=== PATIENT | male | born 1930 | race Caucasian/White ===

== ENCOUNTER 2016-03-16 13:19 | Emergency (ER) | payer OTHER ==
[2016-03-16 13:24] VITALS: BP 154/58; PULSE 69; TEMP 98.3; BMI 24.0
--- NOTE | 2016-03-16 13:28 | PDOC ---
History of Present Illness <DailyDelta - Last Filed: 03/16/16 15:27> - General History Source: Patient, Old Records Exam Limitations: No Limitations - History of Present Illness Initial Comments: 03/16/16 13:46 85-year-old male with history of hypertension, myasthenia gravis, CVA, diabetes and chronic renal insufficiency who presents to the emergency department stating that he was instructed to come to the emergency department for an elevated potassium that was drawn as an outpatient. He self reports the potassium is being 6.1. The patient is without complaints and feels quite well. All review of systems are negative. <Isela Govea - Last Filed: 03/16/16 15:39> - General Chief Complaint: Revisit, Lab Variance Stated Complaint: ELEVATED POTASSIUM FROM BLOOD WORK OUT PT. Time Seen by Provider: 03/16/16 13:28 Past History <MacarenaSiminDelta Quintero - Last Filed: 03/16/16 15:27> - Past Medical History Anemia: No Asthma: No Cancer: No Cardiac Disorders: No CVA: Yes ([id number]) COPD: No CHF: No Dementia: No Diabetes: Yes (5 YEARS) GI Disorders: No Disorders: No (FREQUENT URINATION) HTN: Yes Hypercholesterolemia: Yes Liver Disease: No Seizures: No Thyroid Disease: No - Surgical History Abdominal Surgery: No Appendectomy: No Cardiac Surgery: No Cholecystectomy: No Lung Surgery: No Neurologic Surgery: No Orthopedic Surgery: No - Psycho/Social/Smoking Cessation Hx Anxiety: No Suicidal Ideation: No Smoking History: Never smoked Have you smoked in the past 12 months: No Number of Cigarettes Smoked Daily: 0 If you are a former smoker, when did you quit?: 30 YRS AGO Information on smoking cessation initiated: No Hx Alcohol Use: No Drug/Substance Use Hx: No Substance Use Type: None Hx Substance Use Treatment: No <Isela Govea - Last Filed: 03/16/16 15:39> - Past Medical History Allergies/Adverse Reactions: Allergies Allergy/AdvReac Type Severity Reaction Status Date / Time atorvastatin calcium Allergy Verified 03/16/16 13:21 [From Lipitor] aspirin [From Aggrenox] AdvReac Verified 03/16/16 13:21 dipyridamole [From Aggrenox] AdvReac Verified 03/16/16 13:21 lisinopril AdvReac Verified 03/16/16 13:21 Home Medications: Ambulatory Orders Simvastatin [Zocor -] 40 mg PO HS 05/21/12 Glimepiride 2 mg PO DAILY 04/19/15 Aspirin [ASA -] 81 mg PO DAILY 03/16/16 Review of Systems - Review of Systems Constitutional: No: Symptoms Reported HEENTM: No: Symptoms Reported Respiratory: No: Symptoms reported Cardiac (ROS): No: Symptoms Reported ABD/GI: No: Symptoms Reported : No: Symptoms Reported Musculoskeletal: No: Symptoms Reported Neurological: No: Symptoms reported <Isela Govea - Last Filed: 03/16/16 15:39> *Physical Exam - Vital Signs Last Vital Signs Temp Pulse Resp BP Pulse Ox 98.3 F 69 18 154/58 100 03/16/16 13:21 03/16/16 13:21 03/16/16 13:21 03/16/16 13:21 03/16/16 13:21 <Delta Ambrosio - Last Filed: 03/16/16 15:27> - Vital Signs Last Vital Signs Temp Pulse Resp BP Pulse Ox 98.3 F 69 18 154/58 100 03/16/16 13:21 03/16/16 13:21 03/16/16 13:21 03/16/16 13:21 03/16/16 13:21 - Physical Exam Comments: 03/16/16 13:47 GENERAL: Well developed, well nourished. Awake and alert. No acute distress. HEENT: Normocephalic, atraumatic. PERRLA, EOMI. No conjunctival pallor. Sclera are non- icteric. Moist mucous membranes. Oropharynx is clear. NECK: Supple. Full ROM. No JVD. No lymphadenopathy. CARDIOVASCULAR: Regular rate and rhythm. No murmurs, rubs, or gallops. Distal pulses are 2+ and symmetric. PULMONARY: No evidence of respiratory distress. Lungs clear to auscultation bilaterally. No wheezing, rales or rhonchi. ABDOMINAL: Soft. Non-tender. Non-distended. No rebound or guarding. No organomegaly. Normoactive bowel sounds. MUSCULOSKELETAL Normal range of motion at all joints. No bony deformities or tenderness. No CVA tenderness. EXTREMITIES: No cyanosis. No clubbing. No edema. No calf tenderness. SKIN: Warm and dry. Normal capillary refill. No rashes. No jaundice. NEUROLOGICAL: Alert, awake, appropriate. Cranial nerves 2-12 intact. Grossly non-focal exam. PSYCHIATRIC: Cooperative. Good eye contact. Appropriate mood and affect. <Isela Govea - Last Filed: 03/16/16 15:39> ED Treatment Course - LABORATORY CBC & Chemistry Diagram: 03/16/16 13:35 03/16/16 13:35 - ADDITIONAL ORDERS Additional order review: Laboratory Results 03/16/16 13:35 Sodium 132 L Potassium 5.6 H D Chloride 102 Carbon Dioxide 24 Anion Gap 6 L BUN 51 H D Creatinine 1.9 H D Random Glucose 163 H Calcium 8.4 Phosphorus 4.1 Magnesium 2.1 D 03/16/16 13:35 RBC 4.02 MCV 89.6 MCHC 33.2 RDW 13.2 MPV 8.8 Neutrophils % 73.9 Lymphocytes % 15.6 D Monocytes % 9.2 Eosinophils % 1.1 D Basophils % 0.2 <Delta Ambrosio - Last Filed: 03/16/16 15:27> - LABORATORY CBC & Chemistry Diagram: 03/16/16 13:35 03/16/16 13:35 <Isela Govea - Last Filed: 03/16/16 15:39> Medical Decision Making - Medical Decision Making 03/16/16 14:[address]Fred Clay, PCP, , will call back. 03/16/16 15:02 Call made again to Dr.Fred Clay, will call back. 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 <Delta Ambrosio - Last Filed: 03/16/16 15:27> - Medical Decision Making 03/16/16 13:47 85-year-old male with history of diabetes, myasthenia gravis, hypertension, CVA , chronic renal insufficiency who presents the emergency department for evaluation following reported outpatient potassium of 6.1. Plan: 1. Repeat labs to confirm this value as well as evaluate his renal function 2. EKG 3. Observe and reevaluate 03/16/16 15:34 Addendum: The labs were reviewed and are noted in the EMR the potassium was 5.6 and the creatinine is 1.9. The patient was given Kayexalate 30 g by mouth and one albuterol nebulizer treatment for the hyperkalemia. I have discussed the case with Dr. Macias who is the primary care physician who is covering for Dr. Clay. Apparently the patient's baseline creatinine ranges between 1.8 and 2.0. The patient's last potassium in the primary care physician's office was 5.8. I' ve discussed the case with Dr. Macias and the plan is to discharge the patient home with follow-up with Dr. Clay in one week. The patient is to call for a follow-up appointment. I've discussed all of the lab findings with the patient as well as the follow-up plan. I've advised the patient to return to the emergency department if he has any symptoms or any concerns. <Isela Govea - Last Filed: 03/16/16 15:39> *DC/Admit/Observation/Transfer <Delta Ambrosio - Last Filed: 03/16/16 15:27> - Discharge Dispostion Admit: No <Isela Govea - Last Filed: 03/16/16 15:39> Diagnosis at time of Disposition: Hyperkalemia, Chronic kidney disease - Discharge Dispostion Disposition: HOME Condition at time of disposition: Stable - Patient Instructions Printed Discharge Instructions: DI for Hyperkalemia, Chronic Renal Failure Additional Instructions: Your potassium is elevated. You received Kayexalate and albuterol in the emergency department. These medications were to lower your potassium. You are to follow-up with Dr. Clay in one week-please call the office to make an appointment. Please watch the amount of potassium that you can see him in your diet and cut down on are and juice, bananas and other foods that are rich in potassium. You may return to the emergency department if you have any symptoms, questions or concerns.
[2016-03-16 14:04] LABS: CALCIUM 8.4 mg/dl (8.4-10.2); CREATININE 1.9 mg/dl (0.6-1.3); MAGNESIUM 2.1 mg/dL (1.8-2.4); PHOSPHOROUS 4.1 mg/dl (2.5-4.6)
[2016-03-16 14:30] LABS: BASOPHIL 0.2 % (0-2.0); EOSINOPHIL 1.1 % (0-4.5); MCH 29.7 pg (25.7-33.7); MCHC 33.2 g/dl (32.0-35.9); MEAN CELL VOLUME 89.6 fl (80-96); MEAN PLT VOLUME 8.8 fl (7.5-11.1); NEUTROPHILS 73.9 % (42.8-82.8); PLATELET COUNT 229 K/MM3 (134-434); RDW 13.2 % (11.9-15.9); WHITE BLOOD COUNT 7.1 K/mm3 (4.0-10.0)
[2016-03-16] MEDS ORDERED: SODIUM POLYSTYRENE SULFONATE 15 GM/60 ML BOTTLE PO ONE (14:33)
[2016-03-16] MEDS ORDERED: ALBUTEROL SO4 0.083% IH SOL 2.5 MG/3 ML VIAL.NEB. NEB ONE ×2 (14:35→14:40)
[2016-03-16] MEDS ORDERED: SODIUM POLYSTYRENE SULFONATE 15 GM/60 ML BOTTLE ONE (14:40)
--- NOTE | 2016-03-17 13:30 | EKG ---
Test Reason : Blood Pressure : / mmHG Vent. Rate : 063 BPM Atrial Rate : 063 BPM P-R Int : 148 ms QRS Dur : 070 ms QT Int : 378 ms P-R-T Axes : 042 -15 065 degrees QTc Int : 386 ms NORMAL SINUS RHYTHM NONSPECIFIC T WAVE ABNORMALITY ABNORMAL ECG WHEN COMPARED WITH ECG OF 11-MAY-2015 21:29, PREMATURE VENTRICULAR COMPLEXES ARE NO LONGER PRESENT CRITERIA FOR INFERIOR INFARCT ARE NO LONGER PRESENT QT HAS SHORTENED Confirmed by OLIVER WITT MD ([id number]) on 03/17/2016 1:30:02 PM Referred By: ANTONETTE Confirmed By:OLIVER WITT MD
== END 2016-03-16 16:27 | disposition home or self-care (01) ==
LOC: FER 13:19
DX: E87.5 Hyperkalemia (principal); N18.9 Chronic kidney disease, unspecified; Z86.73 Personal history of transient ischemic attack (TIA), and cerebral infarction without residual deficits; E11.9 Type 2 diabetes mellitus without complications; E78.00 Pure hypercholesterolemia, unspecified; Z79.82 Long term (current) use of aspirin; G70.00 Myasthenia gravis without (acute) exacerbation; Z87.891 Personal history of nicotine dependence
CPT/HCPCS: 36415; 80048; 83735; 84100; 85025; 93005; 99282-25

== ENCOUNTER 2016-11-30 01:47 | Emergency (ER) | payer OTHER ==
--- NOTE | 2016-11-30 01:52 | PDOC ---
History of Present Illness - General Chief Complaint: Respiratory Stated Complaint: COUGH Time Seen by Provider: 11/30/16 01:52 - History of Present Illness Initial Comments: 11/30/16 01:58 86yo male presents with acute sob and resp distress. Pt states he had the flu shot on monday. Went back to his primary care physician today because of congestion in the chest and cough - nonproductive. States cough started on monday after seeing his PMD. States he has post-tussive emesis. No cp. No leg edema. States he feels congested but cannot cough up any phlegm. No abd pain. No n/d. No emesis except after coughing. Pt states he feels sob and can't breath. States he wants to cough up the phlegm, but can't. Pt went back to PMD on monday, saw Dr. Clay, underwent an xray that did not show any acute findings per the daughter and and was started on levaquin. 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 Pt states increasing sob. Past History - Past Medical History Allergies/Adverse Reactions: Allergies Allergy/AdvReac Type Severity Reaction Status Date / Time No Known Allergies Allergy Verified 11/30/16 02:09 Home Medications: Ambulatory Orders Simvastatin [Zocor -] 40 mg PO HS 05/21/12 Glimepiride 2 mg PO DAILY 04/19/15 Aspirin [ASA -] 81 mg PO DAILY 03/16/16 Pyridostigmine [Mestinon] 60 mg PO DAILY 11/30/16 Anemia: No Asthma: No Cancer: No Cardiac Disorders: No CVA: Yes ([id number]) COPD: No CHF: No Dementia: No Diabetes: Yes (5 YEARS) GI Disorders: No Disorders: No (FREQUENT URINATION) HTN: Yes Hypercholesterolemia: Yes Liver Disease: No Seizures: No Thyroid Disease: No Other medical history: myasthenia gravis - Surgical History Abdominal Surgery: No Appendectomy: No Cardiac Surgery: No Cholecystectomy: No Lung Surgery: No Neurologic Surgery: No Orthopedic Surgery: No - Suicide/Smoking/Psychosocial Hx Smoking History: Never smoked Have you smoked in the past 12 months: No Number of Cigarettes Smoked Daily: 0 If you are a former smoker, when did you quit?: 30 YRS AGO Hx Alcohol Use: No Drug/Substance Use Hx: No Substance Use Type: None Hx Substance Use Treatment: No Review of Systems - Review of Systems Able to Perform ROS?: Yes Is the patient limited Upper Sorbian proficient: Yes Constitutional: Yes: Weakness. No: Chills, Fever HEENTM: No: Symptoms Reported Respiratory: Yes: Cough, Orthopnea, Shortness of Breath, SOB with Exertion, SOB at Rest. No: Productive cough Cardiac (ROS): No: Chest Pain, Edema, Irregular Heart Rate ABD/GI: No: Diarrhea, Nausea, Vomiting : No: Symptoms Reported Musculoskeletal: No: Symptoms Reported Integumentary: No: Rash Neurological: No: Headache, Numbness, Paresthesia, Ataxia All Other Systems: Reviewed and Negative *Physical Exam - Vital Signs 11/30/16 02:35 Selected Entries 11/30/16 02:13 Temperature 97.9 F Pulse Rate 109 H Respiratory 28 H Rate Blood Pressure 171/90 O2 Sat by Pulse 92 L Oximetry (%) - Physical Exam General Appearance: Yes: Appropriately Dressed, Moderate Distress, Thin HEENT: positive: EOMI, WENDY, Other (r droopy eyelid) Neck: positive: Trachea midline, Supple. negative: Tender Respiratory/Chest: positive: Respiratory Distress, Crackles, Rhonchi. negative : Accessory Muscle Use Cardiovascular: positive: Regular Rhythm, S1, S2, Tachycardia. negative: Edema Vascular Pulses: Dorsalis-Pedis (R): 2+, Doralis-Pedis (L): 2+ Gastrointestinal/Abdominal: positive: Normal Bowel Sounds, Flat, Soft. negative : Tender, Guarding, Rebound Lymphatic: negative: Adenopathy Musculoskeletal: positive: Normal Inspection. negative: CVA Tenderness Extremity: positive: Normal Capillary Refill, Normal Inspection, Normal Range of Motion, Other (ambulatory in the ED) Integumentary: positive: Normal Color, Dry, Warm Neurologic: positive: Fully Oriented, Alert, Motor Strength 5/5 Procedures - Intubation Time of Intubation: 05:15 Intubation Method: orotracheal Blade used: Mac Tube Size (Fr): 7.5 Medications: Etomidate Tube position @ lip (cm): 122 Tube position confirmed by: Direct visualization, CO2 detector, Chest x-ray, Breath sounds Breath Sounds after Intubation: equal Intubation Complications: no complications Heart Score/ECG Review - History History: Slightly suspicious - Electrocardiogram EKG: Non specific repolarization disturbance - Age Age: >/= 65 - Risk Factors Risk Factors Heart Score: Yes Hx Hypercholesterolemia, Yes Hx Diabetes Based on the list above the patient has:: >/=3 risk factors or Hx atherosclerotic disease - Troponin Troponin: >/=3x normal limit - Score Heart Score - Total: 7 - ECG Intrepretation Comment:: 11/30/16 03:02 sinus at 97, nl axis, lvh, mild st depression v2-4, q waves inferior leads - age indeterminate, abnl ekg ED Treatment Course - LABORATORY CBC & Chemistry Diagram: 11/30/16 02:00 11/30/16 02:00 Medical Decision Making - Critical Care Time Total Critical Care Time (minutes): 90 Critical Care Statement: The care of this patient involved high complexity decision making to prevent further life threatening deterioration of the patient 's condition and/or to evaluate & treat vital organ system(s) failure or risk of failure. - Medical Decision Making 11/30/16 02:38 a/p: 86yo male with resp distress -hx of MG, doesn't feels sob is similar to MG flares in the past, feels different -rhonchi on exam, will obtain cxr, labs, ekg -will give nebs -monitor -reassess 11/30/16 03:21 pt with LLL infiltrate will add blood cultures and start IV levaquin -mildly elevated WBC 11/30/16 03:21 called by lab, troponin elevated, elevated BNP. will add lasix and asa. 11/30/16 03:[address] obrien - cardiology, call placed to [facility] for admission. 11/30/16 03:22 pt with NSTEMI, will need transfer to [place] for tele and further eval. No cp at this time. 11/30/16 03:31 case discussed with IM resident Iva who accepts pt to service under Dr. Zuniga case discussed with Dr. Obrien who will see the patient in consult. Recommends Heparin and transfer to [facility]. 11/30/16 03:35 call placed to ICU. awaiting call back 11/30/16 04:04 case discussed with Jack -manpower development specialist manager in ICU, accepts pt in transfer. no beds available at this time. 11/30/16 04:12 pt will need to be admitted to ICU at [facility]. NSTEMI/CHF workup started in the ED. pt pending transfer when bed available. 11/30/16 05:09 pt became more tachy, tachypnic, resp distress. pt hypoxic to 65. pt agitated, hypoxic. Pt intubated to assist with breathing. 11/30/16 05:[address] Clay at [facility] to see if beds available for transfer. Case discussed with Dr. Boudreaux who recommends calling transfer line to see if ICU beds available. he does not admit to [facility]. IM resident Iva updated on the patients status in the ED. Call placed to [facility] ICU [employer] Jack - awaiting call back. 11/30/16 05:23 multiple calls placed to Katherin to update her on status (/fam), but line is disconnected and call will not go through. 11/30/16 05:27 call placed to [facility] - pts at [phone]. updated on pts status. 11/30/16 05:[address] Akbar at [facility] ICU - no beds available. checking for availability at [place]. Pt with 1 minute of asystole - cpr started - SROC without medication only chest compressions. With SROC pt moving all extremities and opens eyes, reaching for tube 11/30/16 05:[address] Rosales from [facility] CCU. No beds available. 11/30/16 05:51 case discussed with IM resident and updated on status. Also discussed with Katherin again. 11/30/16 06:03 Dr. Obrien from cardiology updated on status of the patient. Recommends lopressor 5mg iv repeat EKG: sinus tach at 106, st depression v2-v6 11/30/16 06:04 abg reviewed, will titrate down the FIO2 11/30/16 06:05 call placed to Jack - eulalio at [facility] ICU - awaiting call back 11/30/16 06:18 case discussed with Jack - he has downgraded a patient from the ED. There is a bed available. 11/30/16 06:25 Call placed to [facility] for poss transfer 11/30/16 06:31 pt arousable and wakes easily. moving all extremities. now on propofol gtt again for sedation 11/30/16 06:34 call placed to [facility] - awaiting call back from iron caster 11/30/16 06:[address] Chirinos from cardiology - no beds available, but may be able to accept er to er and then make a bed available. 11/30/16 06:45 re-eval: lungs w coarse bs b/l, tachy, abd soft, no c/c/e UO 825 11/30/16 06:57 pt accepted to [facility]. Accepting doc: Dr. Hassan 11/30/16 07:01 call placed to IM to update on transfer since a bed is available. 11/30/16 07:04 Dr. Chirinos (cardio fellow accepted on behalf of Dr. Hassan) 11/30/16 07:05 call placed to [facility] - pts to update her. transfer paperwork completed medics on the way from [place] 11/30/16 07:08 the patients daughter, juno was updated, katherin his updated. 11/30/16 07:11 medics from [place] arrived. pt stable for transfer at this time. *DC/Admit/Observation/Transfer Diagnosis at time of Disposition: NSTEMI (non-ST elevated myocardial infarction), CHF (congestive heart failure) , Pneumonia, Respiratory failure - Discharge Dispostion Disposition: TRANSFER ACUTE CARE/OTHER HOSP Condition at time of disposition: Stable Admit: Yes - Referrals Referrals: Pavel Clay [Primary Care Provider] - - Transfer to Acute Care Facility Receiving Facility: [facility]. Accepting Physician:: Dr. Hassan Transfer comment: 11/30/16 06:58 Pt transferred to [facility] to the ED with plan for admission to CCU with DR. Chirinos. Accepted by Dr. Hassan
[2016-11-30] MEDS ORDERED: ALBUTEROL SO4 2.5/IPRATROPIUM 0.5 INH SOL 3 ML VIAL.NEB. NEB ONE (01:55)
[2016-11-30 02:20] VITALS: TEMP 97.9; BMI 22.7
[2016-11-30 02:30] LABS: BASOPHIL 0.2 % (0-2.0); EOSINOPHIL 0.1 % (0-4.5); MCH 30.5 pg (25.7-33.7); MCHC 33.4 g/dl (32.0-35.9); MEAN CELL VOLUME 91.5 fl (80-96); MEAN PLT VOLUME 8.4 fl (7.5-11.1); NEUTROPHILS 82.1 % (42.8-82.8); PLATELET COUNT 222 K/MM3 (134-434); RDW 14.4 % (11.9-15.9); WHITE BLOOD COUNT 13.7 K/mm3 (4.0-10.0)
[2016-11-30 03:01] LABS: ALK PHOS 92 U/L (45-117); ANION GAP 11 (8-16); BILIRUBIN,TOTAL 0.6 mg/dL (0.2-1.0); CALCIUM 9.1 mg/dL (8.5-10.1); CO2 26 mmol/L (21-32); CREATININE 1.9 mg/dL (0.7-1.3); GLUCOSE,RANDOM 192 mg/dL (74-106); MAGNESIUM 2.2 mg/dL (1.8-2.4); SGOT/AST 20 U/L (15-37); SGPT/ALT 18 U/L (12-78); TOT PROT 7.2 g/dl (6.4-8.2)
[2016-11-30] MEDS ORDERED: LEVOFLOXACIN 750 MG IVPB 150 ML IVPB ONE (03:07)
[2016-11-30] MEDS ORDERED: FUROSEMIDE 40 MG/4 ML INJECTABLE VIAL IVPUSH ONE (03:08)
[2016-11-30 03:19] LABS: TROPONIN I 3.17 ng/ml (0.00-0.05)
[2016-11-30] MEDS ORDERED: ASPIRIN 81 MG CHEWABLE TABLETS PO ONE (03:24)
[2016-11-30] MEDS ORDERED: ASPIRIN 81 MG CHEWABLE TABLETS ONE (03:33)
[2016-11-30] MEDS ORDERED: HEPARIN NA (PORCINE) 5,000 UNITS/ML 1ML VIAL IVPUSH PRN ×2 (03:37)
[2016-11-30] MEDS ORDERED: HEPARIN - 25,000 UNIT in SODIUM CHLORIDE 495 ML IV SCH (03:45)
[2016-11-30] MEDS ORDERED: ASPIRIN 325 MG TABLET PO ONE (03:46)
[2016-11-30] MEDS ORDERED: HEPARIN INFUSION - 500 ML IVPB ONE (03:48)
[2016-11-30] MEDS ORDERED: NITROGLYCERIN 2% OINTMENT - 1GM PACKET TD ONE ×2 (04:10)
[2016-11-30] MEDS ORDERED: ETOMIDATE 40 MG/20 ML VIAL IVPUSH ONE (04:19)
[2016-11-30] MEDS ORDERED: RAPID SEQUENCE INTUBATION KIT NR ONE (04:20)
[2016-11-30] MEDS ORDERED: PROPOFOL 100 ML ONE (04:43)
[2016-11-30] MEDS ORDERED: ETOMIDATE 20 MG/10 ML AMPUL IVPUSH ONE ×2 (04:59)
[2016-11-30] MEDS ORDERED: PROPOFOL 100 ML IVPB SCH (05:00)
--- NOTE | 2016-11-30 05:02 | HOSP ---
Physical Examination Vital Signs: Vital Signs Temperature 97.9 F 11/30/16 02:13 Pulse Rate 109 H 11/30/16 02:13 Respiratory Rate 28 H 11/30/16 02:13 Blood Pressure 172/88 11/30/16 03:57 O2 Sat by Pulse Oximetry (%) 95 11/30/16 02:13 Labs: CBC, BMP 11/30/16 02:00 11/30/16 02:00 Hospitalist Encounter Assessment: 3:25 AM: Patient is currently at [facility]. Spoke with Dr. Antoine over the phone regarding the patient. Has NSTEMI with troponin of 3. Plan was to start the patient on IV Heparin drip, Plavix, Aspirin and to transfer the patient to [facility] ICU. Case was discussed with ethologist and Dr. Zuniga who agreed to the management. 4:55 AM After several hours, Dr. Antoine informed that patient decompensated, became hypoxic and had to be intubated before the transfer. She mentioned that she will call [facility] to transfer the patient. Awaiting call back for confirmation. Case discussed with Dr. Zuniga.
[2016-11-30 05:41] LABS: ARTERIAL BLD GAS O2 SATURATION 99.7 % (90-98.9); ARTERIAL BLOOD GAS BASE EXCESS -4.9 meq/l (-2-2); ARTERIAL BLOOD GAS pH 7.31 (7.35-7.45)
[2016-11-30 05:42] LABS: ALLENS TEST POSITIVE; ARTERIAL BLOOD GAS HCO3 20.5 meq/L (22-26); METHEMOGLOBIN 0.4 % (0.4-1.5)
[2016-11-30 05:47] LABS: INR 1.15 (0.82-1.09); PROTHROMBIN TIME (PATIENT) 12.7 SEC (9.98-11.88)
[2016-11-30 05:50] LABS: ACTIVATED PTT 26.9 SECONDS (26.9-34.4)
[2016-11-30] MEDS ORDERED: METOPROLOL TARTRATE 5 MG/5 ML VIAL IVPUSH ONE (06:46)
[2016-11-30 07:09] VITALS: BP 128/80; PULSE 108
[2016-11-30] MEDS ORDERED: MIDAZOLAM HCL 2 MG/2 ML SINGLE DOSE VIAL ONE (07:19)
[2016-11-30] MEDS ORDERED: MIDAZOLAM HCL 2 MG/2 ML SINGLE DOSE VIAL IVPUSH ONE (07:20)
[2016-11-30] MEDS ORDERED: guaiFENesin 600 MG TABLET.ER (FP) PO SCH (10:00)
[2016-11-30] MEDS ORDERED: ASPIRIN 325 MG TABLET PO SCH (10:00)
--- NOTE | 2016-11-30 10:33 | EKG ---
Test Reason : Blood Pressure : / mmHG Vent. Rate : 097 BPM Atrial Rate : 097 BPM P-R Int : 130 ms QRS Dur : 074 ms QT Int : 354 ms P-R-T Axes : 030 -01 077 degrees QTc Int : 449 ms NORMAL SINUS RHYTHM NONSPECIFIC ST AND T WAVE ABNORMALITY ABNORMAL ECG WHEN COMPARED WITH ECG OF 16-MAR-2016 14:21, VENT. RATE HAS INCREASED BY 34 BPM NON-SPECIFIC CHANGE IN ST SEGMENT IN ANTERIOR LEADS QT HAS LENGTHENED Confirmed by BLU SANDOVAL, CATARINA ([id number]) on 11/30/2016 10:32:46 AM Referred By: MD MITCHELL Confirmed By:CATARINA HURT MD
--- NOTE | 2016-11-30 18:41 | EKG ---
Test Reason : Blood Pressure : / mmHG Vent. Rate : 106 BPM Atrial Rate : 106 BPM P-R Int : 144 ms QRS Dur : 078 ms QT Int : 382 ms P-R-T Axes : 051 039 215 degrees QTc Int : 507 ms SINUS TACHYCARDIA POSTERIOR INFARCT , AGE UNDETERMINED WHEN COMPARED WITH ECG OF 30-NOV-2016 03:01, NONSPECIFIC T WAVE ABNORMALITY, WORSE IN INFERIOR LEADS T WAVE INVERSION NOW EVIDENT IN ANTEROLATERAL LEADS QT HAS LENGTHENED Confirmed by MD JONAH, JAQUI ([id number]) on 11/30/2016 6:40:47 PM Referred By: MD MITCHELL Confirmed By:JAQUI MCKENZIE MD
== END 2016-11-30 07:46 | disposition short-term general hospital (02) ==
LOC: FER 01:47
PROC: 3E033GC Introduction of Other Therapeutic Substance into Peripheral Vein, Percutaneous Approach (ICD-10-PCS; principal; 2016-11-30)
PROC: 3E0F7GC Introduction of Other Therapeutic Substance into Respiratory Tract, Via Natural or Artificial Opening (ICD-10-PCS; 2016-11-30)
PROC: 3E033NZ Introduction of Analgesics, Hypnotics, Sedatives into Peripheral Vein, Percutaneous Approach (ICD-10-PCS; 2016-11-30)
DX: I21.4 Non-ST elevation (NSTEMI) myocardial infarction (principal); J96.90 Respiratory failure, unspecified, unspecified whether with hypoxia or hypercapnia; J18.9 Pneumonia, unspecified organism; I50.9 Heart failure, unspecified; E11.9 Type 2 diabetes mellitus without complications; E78.00 Pure hypercholesterolemia, unspecified; I10 Essential (primary) hypertension; Z86.73 Personal history of transient ischemic attack (TIA), and cerebral infarction without residual deficits
CPT/HCPCS: 36415; 36600; 71010-TC; 80053; 82375; 82553; 82803; 83050; 83735; 83880; 84484; 85025; 85610; 85730; 87040; 93005; 94640; 96365; 96367; 96375; 99284-25; J1644